=== PATIENT | male | born 1935 | race Caucasian/White ===

== ENCOUNTER 2016-08-21 14:37 | Inpatient (IN) | payer MEDICARE, OTHER ==
[~2016-08-21 14:37] MED LIST: ADULT LOW DOSE81 MG PO; ARICEPT10 M2 PO; ASPIR 8181 MG PO; ASPIRIN EC81 MG PO; ATENOLOL25 MG PO; ATORVASTATIN CA10 MG PO; AVELOX400 M1 PO; BISOPROLOL FUMAR5 MG PO; BRILINTA90 MG PO; CARBIDOPA/LEVO 21 EA PO; CEFDINIR300 M1 PO; DIPYRIDAMOLE75 MG PO; EXELON PATCH TD; EXELON1 EAC1 TP; EXELON1 EAC2 TD; EXELON1 PATCH .1 TD; FAMOTIDINE20 M2 PO; FIBERCON PO; FIBERCON625 M2 PO; FLOMAX0.4 M1 PO; IMDUR30 MG PO; KEPPRA500 M3 PO; LEXAPRO10 M2 PO; LEXAPRO10 MG PO; LIPITOR10 M1 PO; MILK OF MA400 MG/5 M PO; MIRALAX17 G2 PO; NAMENDA XR28 M1 PO; NAMENDA10 M1 PO; NITROSTAT0.4 MG SL; OMEPRAZOLE20 MG PO; PANTOPRAZOLE SO40 M3 PO; PLAVIX75 MG PO; PREDNISONE PO; PROTONIX20 M2 PO; PROVENTIL HFA6.7 G1 IH; REQUIP0.25 MG PO; REQUIP0.5 M1 PO; SINEMET 25-1001 EAC1 PO; VITAMIN C WIT1000 M3 PO; VITAMIN C500 M3 PO
[2016-08-21] MEDS ORDERED: ALDACTONE25 M1 PO (14:47)
[2016-08-21 15:26] LABS: BASO % 0.2 % (0-2); EOS % 0.3 % (0-7); HCT-HEMATOCRIT 38.4 % (36.0-53.5); HGB-HEMOGLOBIN 12.7 gm/dl (13.5-17.0); IMMATURE GRANULOCYTES ABSOLUTE 0.02 tho/cmm (0-0.03); IMMATURE GRANULOCYTES PERCENT 0.2 % (0-0.3); LYMPH % 20.9 % (20-45); MCH (MEAN CORPUSCULAR HGB) 29.5 pg (28.0-32.0); MCHC MEAN CORPUSCULAR HGB CONC 33.1 % (32.0-36.0); MCV (MEAN CELL VOLUME) 89.3 fl (82.0-96.0); MEAN PLATELET VOLUME 10.6 cmc (9.4-12.4); MONO % 12.6 % (0-12); MONOCYTE ABSOLUTE COUNT 1.2 tho/cmm (0.0-1.2); NEUTROPHIL ABSOLUTE COUNT 6.4 tho/cmm (1.6-8.0); NEUTROPHIL-AUTOMATED 6.4 tho/cmm (1.6-8.0); NEUTROPHILS % 65.8 % (40-80); PLATELET COUNT 147 tho/cmm (150-450); RED CELL DISTRIBUTION WIDTH 14.8 % (12.4-16.4); WHITE BLOOD COUNT 9.8 tho/cmm (4.0-10.0)
[2016-08-21 15:51] LABS: ALB/GLOB RATIO 0.9 (0.8-2.0); ALBUMIN 3.4 g/dl (3.5-5.0); ALKALINE PHOSPHATASE 167 U/L (33-138); ALT/SGPT 27 U/L (12-78); ANION GAP 12 mmol/L (0-20); AST/SGOT 35 U/L (10-40); BILIRUBIN,TOTAL 0.6 mg/dl (0.0-1.5); BLOOD UREA NITROGEN 17 mg/dl (6-24); CALCIUM 8.7 mg/dl (8.5-10.5); CARBON DIOXIDE-VENOUS 27 mmol/L (22-32); CHLORIDE 106 mmol/l (96-110); CREATININE 1.42 mg/dl (0.60-1.30); GLUCOSE 94 mg/dL (70-110); POTASSIUM 4.4 mmol/L (3.7-5.1); SODIUM 141 mmol/L (135-145); eGFR VALUE FOR BLACK 54 mL/Min
[2016-08-21] MEDS ORDERED: SINEMET 25-1001 EAC1 PO (16:32)
[2016-08-21 17:51] LABS: URINE BILIRUBIN NEGATIVE (NEG); URINE BLOOD MODERATE (NEG); URINE GLUCOSE (UA) NEGATIVE (NEG); URINE KETONE SMALL (NEG); URINE LEUKOCYTE ESTERASE NEGATIVE (NEG); URINE NITRITE NEGATIVE (NEG); URINE PROTEIN MODERATE (NEG)
[2016-08-21 17:52] LABS: URINE APPEARANCE HAZY; URINE COLOR YELLOW
[2016-08-21 18:00] LABS: URINE EPITHELIAL CELLS 0 /[HPF] (0-10); URINE WBC 0 /[HPF] (0-5)
[2016-08-22 02:41] LABS: BASO % 0.1 % (0-2); HCT-HEMATOCRIT 35.5 % (36.0-53.5); HGB-HEMOGLOBIN 11.6 gm/dl (13.5-17.0); IMMATURE GRANULOCYTES ABSOLUTE 0.01 tho/cmm (0-0.03); IMMATURE GRANULOCYTES PERCENT 0.1 % (0-0.3); LYMPH % 14.2 % (20-45); LYMPH ABSOLUTE COUNT 1.4 tho/cmm (0.8-4.5); MCH (MEAN CORPUSCULAR HGB) 29.1 pg (28.0-32.0); MCHC MEAN CORPUSCULAR HGB CONC 32.7 % (32.0-36.0); MEAN PLATELET VOLUME 10.3 cmc (9.4-12.4); MONO % 2.4 % (0-12); MONOCYTE ABSOLUTE COUNT 0.2 tho/cmm (0.0-1.2); NEUTROPHIL ABSOLUTE COUNT 8.1 tho/cmm (1.6-8.0); NEUTROPHIL-AUTOMATED 8.1 tho/cmm (1.6-8.0); NEUTROPHILS % 83.2 % (40-80); PLATELET COUNT 129 tho/cmm (150-450); RED BLOOD COUNT 3.99 mil/cmm (4.40-5.70); RED CELL DISTRIBUTION WIDTH 14.9 % (12.4-16.4); WHITE BLOOD COUNT 9.7 tho/cmm (4.0-10.0)
[2016-08-22 02:50] LABS: ANION GAP 13 mmol/L (0-20); BLOOD UREA NITROGEN 20 mg/dl (6-24); CALCIUM 8.3 mg/dl (8.5-10.5); CARBON DIOXIDE-VENOUS 25 mmol/L (22-32); CHLORIDE 108 mmol/l (96-110); GLUCOSE 123 mg/dL (70-110); POTASSIUM 4.4 mmol/L (3.7-5.1); SODIUM 142 mmol/L (135-145); eGFR VALUE FOR BLACK 55 mL/Min
--- NOTE | 2016-08-22 20:37 | NUR ---
VN ROUNDING NOTE-TRIED VISITING WITH PATIENT HE LAY IN BED BUT HE WAS UNABLE TO HEAR ME ON THE CAMERA. IV LIBRARY BEING USED. CHART REVIEWED.
[2016-08-23 04:20] LABS: PLATELET COUNT 131 tho/cmm (150-450)
[2016-08-23 04:27] LABS: ANION GAP 14 mmol/L (0-20); BLOOD UREA NITROGEN 26 mg/dl (6-24); CALCIUM 8.1 mg/dl (8.5-10.5); CARBON DIOXIDE-VENOUS 24 mmol/L (22-32); CHLORIDE 107 mmol/l (96-110); CREATININE 1.24 mg/dl (0.60-1.30); GLUCOSE 158 mg/dL (70-110); SODIUM 141 mmol/L (135-145); eGFR VALUE FOR BLACK 64 mL/Min
[2016-08-23 04:30] LABS: POTASSIUM 4.4 mmol/L (3.7-5.1)
--- NOTE | 2016-08-23 20:49 | NUR ---
VIRTUAL CARE NOTE: ASSESSMENT DEFERRED. PT EITHER SLEEEPING OR WITH STAFF. FAMILY IS NOT PRESENT AT THIS TIME. WILL CONTINUE WITH CHART REVIEW.
[2016-08-24] MEDS ORDERED: TAMIFLU75 M1 PO (12:27)
[2016-08-24] MEDS ORDERED: DELTASONE20 MG PO (12:28)
== END 2016-08-24 13:55 | disposition home health service (06) | DRG 152 ==
LOC: EDMED 14:37 → 5WD 20:01
PROVIDERS: Emergency Medicine; ADMIT Hospitalist
DX: J11.1 Influenza due to unidentified influenza virus with other respiratory manifestations (principal); G92 Toxic encephalopathy; N17.9 Acute kidney failure, unspecified; I25.10 Atherosclerotic heart disease of native coronary artery without angina pectoris; Z95.5 Presence of coronary angioplasty implant and graft; G20 Parkinson's disease; F02.80 Dementia in other diseases classified elsewhere, unspecified severity, without behavioral disturbance, psychotic disturbance, mood disturbance, and anxiety; D69.6 Thrombocytopenia, unspecified; R53.1 Weakness; K21.9 Gastro-esophageal reflux disease without esophagitis; G25.81 Restless legs syndrome; N40.0 Benign prostatic hyperplasia without lower urinary tract symptoms; M19.90 Unspecified osteoarthritis, unspecified site; Z79.82 Long term (current) use of aspirin; Z87.891 Personal history of nicotine dependence
CPT/HCPCS: G8978-GP-CM; G8979-GP-CK; J0696; J1650; J2920; J2930; J7030; J7050